=== PATIENT | female | born 1955 | race Two or more races ===

== ENCOUNTER 2017-01-08 04:59 | Emergency (ER) | payer SELFPAY ==
[~2017-01-08] VITALS: Ht 162.6 cm; Wt 61.2 kg
[2017-01-08 05:00] VITALS: BP 144/76
== END 2017-01-08 06:38 | disposition left against medical advice (07) ==
LOC: ED 06:32
DX: R10.9 Unspecified abdominal pain (principal); Z53.21 Procedure and treatment not carried out due to patient leaving prior to being seen by health care provider